=== PATIENT | female | born 1950 | race African-American/Black ===

== ENCOUNTER 2017-08-11 10:49 | Emergency (ER) | payer OTHER ==
[2017-08-11 11:00] VITALS: BMI 36.6
[2017-08-11] MEDS ORDERED: ACETAMINOPHEN 325 MG TABLET (FP) PO ONE (11:02)
[2017-08-11 11:44] LABS: URINE APPEARANCE CLEAR; URINE BILIRUBIN NEGATIVE (<2.0 mg/dL); URINE COLOR LTYELLOW; URINE GLUCOSE (UA) NEGATIVE (NEGATIVE); URINE KETONE NEGATIVE (NEGATIVE); URINE LEUK ESTERASE NEGATIVE (NEGATIVE); URINE NITRITE NEGATIVE (NEGATIVE); URINE PROTEIN NEGATIVE (NEGATIVE); URINE UROBILINOGEN NEGATIVE mg/dL (0.2-1.0)
[2017-08-11 11:50] LABS: BASO % 0.5 % (0-2.0); EOS % 0.1 % (0-4.5); HEMATOCRIT 40.1 % (32.4-45.2); HEMOGLOBIN 13.2 GM/dL (10.7-15.3); LYMPH % 9.6 % (8-40); MCH 29.4 pg (25.7-33.7); MEAN CELL VOLUME 89.1 fl (80-96); MEAN PLT VOLUME 8.2 fl (7.5-11.1); NEUT % 85.8 % (42.8-82.8); PLATELET COUNT 225 K/MM3 (134-434); RDW 13.8 % (11.6-15.6); WHITE BLOOD COUNT 5.9 K/mm3 (4.0-10.0)
[2017-08-11 12:02] LABS: EPI CELLS RARE /HPF (FEW); URINE MUCUS RARE
--- NOTE | 2017-08-11 12:15 | PDOC ---
History of Present Illness - General Chief Complaint: SIRS, Suspected/Possible Stated Complaint: FEVER, HEADACHE Time Seen by Provider: 08/11/17 11:25 History Source: Patient Exam Limitations: No Limitations - History of Present Illness Initial Comments: 08/11/17 12:34 67-year-old female presents the ED with complaints of bilateral temporal pressure for the past 2 days accompanied with fever and generalized malaise with body aches. Patient also complaint of sore throat 3 days prior and mild dry cough today. Patient denies urinary difficulties, bowel complaints, rash, sore throat presently, dizziness, visual changes recent travel, recent sick contacts, or recent illness. Timing/Duration: 24 hours Severity: mild, moderate Associated Symptoms: reports: cough, fever/chills, headaches Past History - Past Medical History Allergies/Adverse Reactions: Allergies Allergy/AdvReac Type Severity Reaction Status Date / Time No Known Allergies Allergy Verified 08/11/17 10:56 Home Medications: Ambulatory Orders Metformin HCl [Metformin HCl ER] 500 mg PO DAILY 08/11/17 Metoprolol Succinate [Toprol Xl] 50 mg PO DAILY 08/11/17 Valsartan/Hydrochlorothiazide [Diovan Hct 320-12.5 mg Tab] 1 each PO DAILY 08/11 COPD: No GI Disorders: (diverticulitis) HTN: Yes Other medical history: arthritis - Immunization History Immunization Up to Date: Yes - Suicide/Smoking/Psychosocial Hx Smoking History: Never smoked Patient Lives Alone: No Lives with/in: spouse/SO Review of Systems - Review of Systems Able to Perform ROS?: No Constitutional: Yes: Chills, Fever HEENTM: Yes: Throat Pain Respiratory: Yes: Cough Cardiac (ROS): No: Symptoms Reported ABD/GI: No: Symptoms Reported : No: Symptoms Reported Musculoskeletal: Yes: Joint Pain, Muscle Pain Integumentary: No: Symptoms Reported Neurological: Yes: Headache (temporal) *Physical Exam - Vital Signs Last Vital Signs Temp Pulse Resp BP Pulse Ox 102.6 F H 87 18 157/89 95 08/11/17 10:57 08/11/17 10:57 08/11/17 10:57 08/11/17 10:57 08/11/17 10:57 - Physical Exam General Appearance: Yes: Nourished, Appropriately Dressed. No: Apparent Distress HEENT: positive: EOMI, DALJIT, TMs Normal, Pharynx Normal. negative: Pale Conjunctivae Neck: positive: Supple. negative: Lymphadenopathy (R), Lymphadenopathy (L) Respiratory/Chest: positive: Lungs Clear, Normal Breath Sounds. negative: Respiratory Distress, Accessory Muscle Use Cardiovascular: positive: Regular Rhythm, Regular Rate. negative: Murmur Gastrointestinal/Abdominal: positive: Soft. negative: Tenderness Extremity: positive: Normal Capillary Refill. negative: Pedal Edema Integumentary: positive: Normal Color, Warm, Moist Neurologic: positive: Motor Strength 5/5 (ambulatory) ED Treatment Course - LABORATORY CBC & Chemistry Diagram: 08/11/17 11:40 08/11/17 11:40 - ADDITIONAL ORDERS Additional order review: Laboratory Results 08/11/17 11:30 Urine Color Ltyellow Urine Appearance Clear Urine pH 6.0 Ur Specific Graham 1.015 Urine Protein Negative Urine Glucose (UA) Negative Urine Ketones Negative Urine Blood 1+ H Urine Nitrite Negative Urine Bilirubin Negative Urine Urobilinogen Negative Ur Leukocyte Esterase Negative 08/11/17 11:40 RBC 4.50 MCV 89.1 MCHC 33.0 RDW 13.8 MPV 8.2 Neutrophils % 85.8 H Lymphocytes % 9.6 Monocytes % 4.0 Eosinophils % 0.1 Basophils % 0.5 - Medications Given in the ED: ED Medications Discontinued Medications Generic Name Dose Route Start Last Admin Trade Name Freq PRN Reason Stop Dose Admin Acetaminophen 975 mg 08/11/17 11:02 08/11/17 11:02 Tylenol - PO 08/11/17 11:03 975 mg NOW ONE Administration Medical Decision Making - Medical Decision Making 08/11/17 11:45 Patient with complaints of sore throat mild dry cough fever chills and body aches along with temporal headache since yesterday. Patient on exam had no acute findings concerning for a bacterial infection. Patient was ordered for urinalysis urine culture along with influenza and basic labs including CBC. Patient was given Tylenol out in triage 08/11/17 12:47 Laboratory Tests 08/11/17 08/11/17 08/11/17 11:30 11:40 11:40 WBC 5.9 Hgb 13.2 Hct 40.1 Neutrophils % 85.8 H Sodium 135 L Potassium 3.5 Chloride 102 Carbon Dioxide 26 Anion Gap 7 L BUN 11 Creatinine 0.9 Creat Clearance w eGFR > 60 Random Glucose 117 H Lactic Acid Calcium 8.8 Total Bilirubin 0.9 AST 13 L Urine Ketones Negative Urine Blood 1+ H Ur Leukocyte Esterase Negative Urine WBC (Auto) 3 Urine RBC (Auto) 9 08/11/17 11:40 WBC Hgb Hct Neutrophils % Sodium Potassium Chloride Carbon Dioxide Anion Gap BUN Creatinine Creat Clearance w eGFR Random Glucose Lactic Acid 0.9 Calcium Total Bilirubin AST Urine Ketones Urine Blood Ur Leukocyte Esterase Urine WBC (Auto) Urine RBC (Auto) Influenza negative. Patient states feeling better Patient will be revitalized and discharged home with recommendations to take Motrin 600 mg rest and push fluids. This is likely due to viral syndrome. 08/11/17 13:47 08/11/17 13:48 *DC/Admit/Observation/Transfer Diagnosis at time of Disposition: Fever Qualifiers: Fever type: unspecified Qualified Code(s): R50.9 - Fever, unspecified - Discharge Dispostion Disposition: HOME Condition at time of disposition: Improved - Referrals - Patient Instructions Printed Discharge Instructions: DI for Fever (Symptom) -- Adult Additional Instructions: East take 600 mg every 6-8 hours for adequate fever control and drink plenty of fluids. Rest and if symptoms do not improve over the next few days please return to the ED. Otherwise follow up with her primary care physician. - Post Discharge Activity
[2017-08-11 12:34] LABS: ALBUMIN 3.6 g/dl (3.4-5.0); ANION GAP 7 (8-16); BLOOD UREA NITROGEN 11 mg/dL (7-18); CALCIUM 8.8 mg/dL (8.5-10.1); CHLORIDE 102 mmol/L (98-107); CO2 26 mmol/L (21-32); GLUCOSE,RANDOM 117 mg/dL (74-106); POTASSIUM 3.5 mmol/L (3.5-5.1); SODIUM 135 mmol/L (136-145)
[2017-08-11 12:37] LABS: ALK PHOS 82 U/L (45-117); BILIRUBIN,TOTAL 0.9 mg/dL (0.2-1.0); CREATININE 0.9 mg/dL (0.55-1.02); SGOT/AST 13 U/L (15-37); SGPT/ALT 16 U/L (12-78)
[2017-08-11] MEDS ORDERED: IBUPROFEN 600 MG TABLET (FP) PO ONE (13:04)
[2017-08-11 14:07] VITALS: BP 148/92; PULSE 79; TEMP 98.9
[2017-08-11] MEDS ORDERED: IBUPROFEN 400 MG TABLET (FP) PO ONE (14:07)
== END 2017-08-11 14:12 | disposition home or self-care (01) ==
LOC: JER 10:49
DX: B34.9 Viral infection, unspecified (principal); I10 Essential (primary) hypertension; M12.9 Arthropathy, unspecified; Z87.19 Personal history of other diseases of the digestive system
CPT/HCPCS: 36415; 80053; 81003; 81015; 83605; 85025; 87086; 87804; 99282-25

== ENCOUNTER 2019-03-07 10:50 | Emergency (ER) | payer OTHER ==
[2019-03-07 11:05] VITALS: BMI 34.7
--- NOTE | 2019-03-07 11:30 | PDOC ---
History of Present Illness - General Chief Complaint: Cold Symptoms Stated Complaint: FEVER/BODY ACHE Time Seen by Provider: 03/07/19 11:28 History Source: Patient Exam Limitations: No Limitations - History of Present Illness Initial Comments: 03/07/19 11:40 69yF w PMHx HTN DM presenting w fevers, dry cough, body aches, headache. Has had these symptoms for last 4d. 101 fever this morning. 2d ago went to urgent care, clinically dx w flu, given tamiflu. Been taking tamiflu and tylenol without much relief. Denies nausea/vomiting, chest pain, SOB, AB pain, diarrhea/ constipation. Works in hospital Past History - Past Medical History Allergies/Adverse Reactions: Allergies Allergy/AdvReac Type Severity Reaction Status Date / Time No Known Allergies Allergy Verified 03/07/19 11:01 Home Medications: Ambulatory Orders Metoprolol Succinate [Toprol Xl] 50 mg PO DAILY 08/11/17 Valsartan/Hydrochlorothiazide [Diovan Hct 320-12.5 mg Tab] 1 each PO DAILY 08/11 metFORMIN HCL [Metformin HCl ER] 500 mg PO DAILY 08/11/17 Amox-Tr/K Cl [Augmentin - 875Mg Tablet] 1 tab PO BID 7 Days #14 tablet 03/07/19 Azithromycin [Zithromax Tri-Daniel (3 DAYS) -] 500 mg PO DAILY #3 tablet 03/07/19 COPD: No GI Disorders: (diverticulitis) HTN: Yes - Immunization History Immunization Up to Date: Yes - Psycho Social/Smoking Cessation Hx Smoking History: Never smoked Have you smoked in the past 12 months: No Hx Alcohol Use: No Drug/Substance Use Hx: No Review of Systems - Review of Systems Constitutional: Yes: Fever. No: Chills HEENTM: No: Eye Pain, Recent change in vision, Nose Pain, Nose Congestion, Throat Pain, Mouth Pain Respiratory: Yes: Cough. No: Shortness of Breath Cardiac (ROS): No: Chest Pain, Palpitations, Syncope ABD/GI: No: Abdominal Distended, Constipated, Diarrhea, Nausea, Vomiting : No: Burning, Dysuria, Flank Pain Musculoskeletal: Yes: Muscle Pain (aches). No: Back Pain Integumentary: No: Bruising, Flushing, Lesions Neurological: Yes: Headache. No: Seizure, Tingling Psychiatric: No: Anxiety, Depression Endocrine: No: Excessive Sweating, Flushing, Intolerance to Cold, Intolerance to Heat Hematologic/Lymphatic: No: Anemia, Blood Clots *Physical Exam - Vital Signs Last Vital Signs Temp Pulse Resp BP Pulse Ox 99.0 F 90 16 180/87 H 95 03/07/19 11:02 03/07/19 11:02 03/07/19 11:02 03/07/19 11:02 03/07/19 11:02 - Physical Exam General Appearance: Yes: Nourished, Appropriately Dressed, Mild Distress HEENT: positive: EOMI, DALJIT, Normal Voice, Hearing Grossly Normal. negative: Scleral Icterus (R), Scleral Icterus (L), Nasal Congestion, Rhinorrhea Respiratory/Chest: positive: Crackles (RLL). negative: Chest Tender, Respiratory Distress, Rhonchi, Stridor, Wheezing Cardiovascular: positive: Regular Rhythm, Regular Rate, S1, S2. negative: Edema , Murmur Extremity: positive: Normal Capillary Refill. negative: Swelling Integumentary: positive: Normal Color. negative: Rash Neurologic: positive: Fully Oriented, Alert, Normal Mood/Affect, Normal Response , Responsive. negative: Sensory Deficit, Confused, Disoriented ED Treatment Course - LABORATORY CBC & Chemistry Diagram: 03/07/19 12:20 03/07/19 12:20 Medical Decision Making - Medical Decision Making 03/07/19 11:42 CBC, CMP, flu swab, cx EKG shows NSR, LVH, HR 81, QTc 415, no ST changes ibuprofen --- 69yF w PMHx HTN DM presenting w fevers, dry cough, body aches, headache d/t viral URI and PNA (RLL consolidation on CXR). Tested neg for influenza. Hemodynamically stable. Given ibuprofen, amoxicillin, augmentin. DC home w amoxicillin, augmentin, PCP f/u Discharge - Discharge Information Problems reviewed: Yes Clinical Impression/Diagnosis: Viral URI with cough Pneumonia Qualifiers: Pneumonia type: due to unspecified organism Laterality: right Lung location: lower lobe of lung Qualified Code(s): J18.9 - Pneumonia, unspecified organism Condition: Good Disposition: HOME - Admission No - Additional Discharge Information Prescriptions: Amox-Tr/K Cl [Augmentin - 875Mg Tablet] 1 tab PO BID 7 Days #14 tablet Azithromycin [Zithromax Tri-Daniel (3 DAYS) -] 500 mg PO DAILY #3 tablet - Follow up/Referral Referrals: Eladia Kraft MD [Primary Care Provider] - - Patient Discharge Instructions Patient Printed Discharge Instructions: DI for Pneumonia -- Adult Additional Instructions: You were seen for fevers and cough. Your x-ray shows that you have a pneumonia. You were given antibiotics Please take the prescribed antibiotics azithromycin and Augmentin as directed. You can take tylenol or ibuprofen if you have fevers Make an appointment to see your primary care doctor if your symptoms don't improve in the next 5 days. Come back to the ED if you have trouble breathing, vomiting, or chest pain - Post Discharge Activity
[2019-03-07] MEDS ORDERED: IBUPROFEN 600 MG TABLET (FP) PO ONE ×2 (11:39→11:45)
--- NOTE | 2019-03-07 12:31 | PDOC ---
Documentation entered by Giovana Schultz SCRIBE, acting as scribe for Krissy Coombs DO. Krissy Coombs DO: This documentation has been prepared by the Marion calvin Joy, SCRIBE, under my direction and personally reviewed by me in its entirety. I confirm that the documentation accurately reflects all work, treatment, procedures, and medical decision making performed by me. Attending Attestation - Resident Resident Name: Rakesh Tang - ED Attending Attestation I have performed the following: I have examined & evaluated the patient, The case was reviewed & discussed with the resident, I agree w/resident's findings & plan, Exceptions are as noted - HPI HPI: 03/07/19 11:55 The patient is a 69 year old female with significant past medical history of HTN who presents to the ED with fever (101 F, this morning), dry cough, headache , and body aches for 4 days. As per patient, 2 days ago she went to an urgent care and was diagnosed with the flu, so she was given tamiflu. Patient endorses she has been taking tamiflu and tylenol with no relief which promoted her arrival to the ED. The patient denies chest pain, shortness of breath, and dizziness. Denies chills, nausea, vomiting, diarrhea and constipation. Denies dysuria, frequency, urgency and hematuria. Allergies: NKA Social history: Never smoker. PCP: Dr. 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
[2019-03-07 12:50] LABS: BASO % 0.4 % (0-2.0); EOS % 1.6 % (0-4.5); HEMATOCRIT 37.8 % (32.4-45.2); HEMOGLOBIN 12.7 GM/dL (10.7-15.3); LYMPH % 13.6 % (8-40); MCH 30.1 pg (25.7-33.7); MCHC 33.5 g/dl (32.0-36.0); MEAN CELL VOLUME 89.9 fl (80-96); MEAN PLT VOLUME 7.9 fl (7.5-11.1); MONO % 7.5 % (3.8-10.2); NEUT % 76.9 % (42.8-82.8); PLATELET COUNT 284 K/MM3 (134-434); RBC 4.21 M/mm3 (3.60-5.2); RDW 13.8 % (11.6-15.6); WHITE BLOOD COUNT 7.5 K/mm3 (4.0-10.0)
[2019-03-07 13:07] LABS: ALBUMIN 3.1 g/dl (3.4-5.0); BILIRUBIN,TOTAL 0.4 mg/dL (0.2-1); BLOOD UREA NITROGEN 13.5 mg/dL (7-18); CREATININE 0.8 mg/dL (0.55-1.3); POTASSIUM 3.3 mmol/L (3.5-5.1); TOT PROT 7.5 g/dl (6.4-8.2)
[2019-03-07] MEDS ORDERED: AZITHROMYCIN 500 MG TABLET PO ONE (13:47)
[2019-03-07] MEDS ORDERED: AZITHROMYCIN 250 MG TABLET PO ONE (13:47)
[2019-03-07] MEDS ORDERED: AMOX TR/POT CLAV 875MG/125MG TABLETS (FP) PO ONE (13:48)
[2019-03-07] MEDS ORDERED: AZITHROMYCIN 250 MG TABLET ONE (13:51)
[2019-03-07] MEDS ORDERED: AMOX TR/POT CLAV 875MG/125MG TABLETS (FP) ONE (13:51)
[2019-03-07 14:12] VITALS: BP 157/87; PULSE 76; TEMP 99.1
--- NOTE | 2019-03-08 13:33 | EKG ---
Test Reason : Blood Pressure : / mmHG Vent. Rate : 081 BPM Atrial Rate : 081 BPM P-R Int : 124 ms QRS Dur : 086 ms QT Int : 358 ms P-R-T Axes : 036 015 064 degrees QTc Int : 415 ms NORMAL SINUS RHYTHM NORMAL ECG NO PREVIOUS ECGS AVAILABLE Confirmed by BRITTNEY UGARTE MD ([id number]) on 03/08/2019 1:33:39 PM Referred By: Confirmed By:BRITTNEY UGARTE MD
== END 2019-03-07 14:35 | disposition home or self-care (01) ==
LOC: JER 10:50
DX: J18.9 Pneumonia, unspecified organism (principal); J06.9 Acute upper respiratory infection, unspecified; B97.89 Other viral agents as the cause of diseases classified elsewhere; I10 Essential (primary) hypertension; E11.9 Type 2 diabetes mellitus without complications; Z79.84 Long term (current) use of oral hypoglycemic drugs; Z87.19 Personal history of other diseases of the digestive system
CPT/HCPCS: 36415; 71046-TC-FY; 80053; 85025; 87040; 87186; 87804; 93005; 93010; 99285-25

== ENCOUNTER 2019-03-08 14:33 | Emergency (ER) | payer OTHER ==
--- NOTE | 2019-03-08 14:41 | PDOC ---
Rapid Medical Evaluation Time Seen by Provider: 03/08/19 14:41 Medical Evaluation: Allergies Allergy/AdvReac Type Severity Reaction Status Date / Time No Known Allergies Allergy Verified 03/07/19 11:01 03/08/19 14:42 I performed a brief in-person evaluation of this patient. 69-year-old female with HTN seen in ED on 03/07 with fever (T101 F), dry cough, headache, and body aches for 4 days. Was on Tamiflu from previous urgent care visit. Noted to have infiltrate on CXR and started on Augmentin/Azithromycin. Called back by me today for prelim pos blood culture; patient on phone noted worsening symptoms. Alert, oriented, no distress. Lungs CTAB. Afebrile. I have ordered the following: CBC, BMP, lactic acid, repeat blood cultures Patient will proceed to ED for further evaluation. Discharge Disposition - Diagnosis Blood bacterial culture positive - Referrals - Patient Instructions - Post Discharge Activity
[2019-03-08 14:44] VITALS: BMI 34.7
[2019-03-08] MEDS ORDERED: ACETAMINOPHEN 500 MG TABLET (FP) PO ONE (16:16)
--- NOTE | 2019-03-08 16:20 | PDOC ---
Attending Attestation - Resident Resident Name: DemarioLibrado - ED Attending Attestation I have performed the following: I have examined & evaluated the patient, The case was reviewed & discussed with the resident, I agree w/resident's findings & plan - HPI HPI: 03/08/19 16:18 69yF w PMHx HTN DM presenting with positive blood culture x 1 bottle. Positive blood cultures from 03/07/2019 pending organism, there is gram- positive cocci in clusters and only 1 blood culture set Patient was seen previously for T-max 101.0 F associated with cough, she was previously on Tamiflu for suspected flu. Infiltrate and started on Augmentin/azithromycin for pneumonia, started taking yesterday. Patient does endorse improving clinical symptoms - no fevers, cough , congestion, SOB or chest pain. tolerating po intake. 03/08/19 17:22 03/08/19 17:24 - Physicial Exam PE: 03/08/19 16:18 Agree with the resident's HPI and PE as documented in the electronic medical record. NAD, well appearing, EOMI, PERRL, nl conjunctiva, anicteric; neck supple. lungs clear, RRR, abdomen soft nontender. no rebound, guarding. Back nontender. PINTO x4, no focal neuro deficits. No peripheral edema. normal color for ethnicity , WWP. - Medical Decision Making 03/08/19 16:18 Vital Signs Temp Pulse Resp BP Pulse Ox 98.6 F 91 H 18 160/83 95 03/08/19 14:40 03/08/19 14:40 03/08/19 14:40 03/08/19 14:40 03/08/19 14:40 pt without fevers, feeling improved mild HTN sats wnl. getting treated for pna - augmentin/azithromycin currently nontoxic, no systemic features given tylenol for headache here repeat blood culture set, follow up on likely false positive, as pt is reliable since only positive in one, likely contaminant - staph epidermis? pending organism. pt is reliable. close followup. Pt to be discharged in stable condition. Patient made aware of clinical impression, treatment recommendations and disposition plan, return precautions discussed (including but not limited to new or persistent/worsening symptoms, pain, fevers, or signs of infection, chest pain, respiratory distress, inability to tolerate oral intake, dehydration, syncope, or neurologic changes) . Follow up with PMD as recommended, follow up information provided, take medications as instructed for duration of time. continue with supportive care, avoid triggers and precipitants. All questions answered to patient's satisfaction and expressed understanding and comfort with this. At the time of discharge, the patient is alert, clinically improved, tolerating po and verbalizes understanding of instructions, satisfied with the care received and felt comfortable with the plan. Patient does not suffer from an acute life- threatening medical condition at this time and is safe for outpatient follow- up. 03/08/19 16:18 03/08/19 16:31 03/08/19 16:54 03/08/19 17:23
--- NOTE | 2019-03-08 16:22 | PDOC ---
History of Present Illness <Areli Massey Leyla - Last Filed: 03/08/19 16:54> - History of Present Illness Initial Comments: 69F called back due to positive BCx result. Pt feels better today vs yesterday, still has dry cough, myalgias, and malaise. Denies productive cough, change in cough character, runny nose, sore throat Denies headache, neck ache, change in vision / hearing, numbness, tingling, weakness Denies cp/sob/palp Endorses feeling warm <Librado Hanks - Last Filed: 03/13/19 15:45> - General Chief Complaint: Revisit, Lab Variance Stated Complaint: FOLLOW UP Time Seen by Provider: 03/08/19 14:41 Past History <Areli Massey Leyla - Last Filed: 03/08/19 16:54> - Past Medical History COPD: No GI Disorders: (diverticulitis) HTN: Yes - Immunization History Immunization Up to Date: Yes - Psycho Social/Smoking Cessation Hx Smoking History: Never smoked Have you smoked in the past 12 months: No Hx Alcohol Use: No Drug/Substance Use Hx: No <DemarioLibrado - Last Filed: 03/13/19 15:45> - Past Medical History Allergies/Adverse Reactions: Allergies Allergy/AdvReac Type Severity Reaction Status Date / Time No Known Allergies Allergy Verified 03/08/19 14:44 Home Medications: Ambulatory Orders Metoprolol Succinate [Toprol Xl] 50 mg PO DAILY 08/11/17 Valsartan/Hydrochlorothiazide [Diovan Hct 320-12.5 mg Tab] 1 each PO DAILY 08/11 metFORMIN HCL [Metformin HCl ER] 500 mg PO DAILY 08/11/17 Amox-Tr/K Cl [Augmentin - 875Mg Tablet] 1 tab PO BID 7 Days #14 tablet 03/07/19 Azithromycin [Zithromax Tri-Daniel (3 DAYS) -] 500 mg PO DAILY #3 tablet 03/07/19 Review of Systems - Review of Systems Comments:: CONSTITUTIONAL: Endorses warmth HEENT: Denies headache, lightheadedness, dizziness, changes in vision / hearing , neck pain RESP: Denies SOB, cough CARD: Denies chest pain, palpitations GI: Denies N / V / D, abdominal pain, inability to tolerate PO : Denies dysuria, frequency SKIN: Denies rashes NEURO: Denies numbness, tingling, weakness MSK: Denies back pain <Librado Hanks - Last Filed: 03/13/19 15:45> *Physical Exam - Vital Signs Last Vital Signs Temp Pulse Resp BP Pulse Ox 98.6 F 91 H 18 160/83 95 03/08/19 14:40 03/08/19 14:40 03/08/19 14:40 03/08/19 14:40 03/08/19 14:40 <Areli Massey - Last Filed: 03/08/19 16:54> - Vital Signs Last Vital Signs Temp Pulse Resp BP Pulse Ox 98.6 F 91 H 18 160/83 95 03/08/19 14:40 03/08/19 14:40 03/08/19 14:40 03/08/19 14:40 03/08/19 14:40 - Physical Exam GEN: Well appearing, NAD, comfortable. AAOx3 HEENT: NC/AT, EOMI, PERRLA. No facial asymmetry. Moist mucous membranes. Normal voice. Supple neck w/ FROM. CV: S1/S2, RRR, no m/r/g LUNG: Coarse breath sounds on RLL, equal entry b/l GI: soft, ndnt, +BS, no guarding, no rebound. EXTREMITIES: No LE edema. No obvious deformities of all extremities. SKIN: warm, dry, normal turgor PSYCH: normal mood and affect NEURO: Moving all extremities well. <Librado Hanks - Last Filed: 03/13/19 15:45> Medical Decision Making - Medical Decision Making 03/08/19 16:17 69F called back to ED for positive BCx result but feeling better today than yesterday. cx likely contaminate rpt cx tylenol DC home w/ f/u <Librado Hanks - Last Filed: 03/13/19 15:45> Discharge - Admission No <Areli Massey - Last Filed: 03/08/19 16:54> - Discharge Information Problems reviewed: Yes - Admission No <Librado Hanks - Last Filed: 03/13/19 15:45> - Discharge Information Clinical Impression/Diagnosis: Blood bacterial culture positive, Pneumonia Condition: Stable Disposition: HOME - Follow up/Referral Referrals: Eladia Kraft MD [Primary Care Provider] - - Patient Discharge Instructions Additional Instructions: Follow up with your primary care doctor in the next 2-3 days regarding these symptoms. You were called back due to a positive blood culture but we believe this is most likely due to contamination. We are repeating the cultures and will call you back if the results are positive. CONTINUE your antibiotics that were prescribed to you from the ED. Take tylenol or ibuprofen for fever and myalgias; follow the instructions of the label. Immediately return to the Emergency Department if you experience high fevers, worsening symptoms, non-improving symptoms in the next 3 days, chest pain, or shortness of breath. - Post Discharge Activity Work/Back to School Note: Back to Work
[2019-03-08] MEDS ORDERED: SODIUM CHLORIDE 0.9% 500 ML INFUS.BAG IV ONE (16:26)
[2019-03-08] MEDS ORDERED: ACETAMINOPHEN 325 MG TABLET (FP) ONE (17:43)
[2019-03-08 17:51] VITALS: BP 154/78; PULSE 77; TEMP 98.5
== END 2019-03-08 17:48 | disposition home or self-care (01) ==
LOC: JER 14:33
DX: J18.8 Other pneumonia, unspecified organism (principal); R78.81 Bacteremia; I10 Essential (primary) hypertension; E11.9 Type 2 diabetes mellitus without complications; Z79.84 Long term (current) use of oral hypoglycemic drugs; Z87.19 Personal history of other diseases of the digestive system
CPT/HCPCS: 87040; 99283-25